=== PATIENT | female | born 1955 | race Caucasian/White ===

== ENCOUNTER 2016-07-04 07:49 | Outpatient (CLI) | payer OTHER | END 2016-07-04 07:50 | disposition home or self-care (01) | DX: Z79.899 Other long term (current) drug therapy (principal); E78.5 Hyperlipidemia, unspecified; E55.9 Vitamin D deficiency, unspecified; E11.9 Type 2 diabetes mellitus without complications ==

== ENCOUNTER 2016-08-28 06:13 | Day surgery (SDC) | payer OTHER ==
[2016-08-28] MEDS ORDERED: LACTATED RINGERS 1,000 ML IV ONE (06:42)
[2016-08-28] MEDS ORDERED: ONDANSETRON 4 MG/2 ML VIAL IVP ONE (07:32)
[2016-08-28] MEDS ORDERED: MIDAZOLAM 2 MG/2 ML VIAL IVP ONE (07:32)
[2016-08-28] MEDS ORDERED: fentaNYL 100 MCG/2 ML VIAL IVP ONE (07:32)
[2016-08-28] MEDS ORDERED: ONDANSETRON 4 MG/2 ML VIAL ONE (09:49)
[2016-08-28 10:26] VITALS: BP 102/56
== END 2016-08-28 06:14 | disposition home or self-care (01) ==
LOC: SDS 06:13
PROVIDERS: ATTEND Surgery
PROC: 0DJD8ZZ Inspection of Lower Intestinal Tract, Via Natural or Artificial Opening Endoscopic (ICD-10-PCS; principal; 2016-08-28 07:30)
DX: Z12.11 Encounter for screening for malignant neoplasm of colon (principal); K57.30 Diverticulosis of large intestine without perforation or abscess without bleeding; Z80.0 Family history of malignant neoplasm of digestive organs; E11.9 Type 2 diabetes mellitus without complications; I10 Essential (primary) hypertension; Z80.3 Family history of malignant neoplasm of breast
CPT/HCPCS: 45378; J7120

== ENCOUNTER 2017-01-01 07:55 | Outpatient (CLI) | payer OTHER ==
[2017-01-01 11:57] LABS: BASOPHILS # (AUTO) 0.1 10^3/uL (0.0-0.1); EOSINOPHILS # (AUTO) 0.3 10^3/uL (0.0-0.7); EOSINOPHILS % (AUTO) 3.7 %; HCT - HEMATOCRIT 35.1 % (37.0-47.0); HGB - HEMOGLOBIN 11.9 g/dL (12.0-16.0); LYMPHOCYTES # (AUTO) 1.7 10^3/uL (1.5-3.5); LYMPHOCYTES % (AUTO) 24.5 %; MEAN CORPUSCULAR HGB CONC 33.9 g/dL (32.0-36.0); MEAN CORPUSCULAR VOLUME 94.3 fL (81.0-99.0); MONOCYTES # (AUTO) 0.4 10^3/uL (0.0-1.0); NEUTROPHILS # (AUTO) 4.5 10^3/uL (1.5-6.6); NEUTROPHILS % (AUTO) 64.8 %; NUCLEATED RED BLOOD CELLS AUTO 0.1 /100WBC; RED BLOOD COUNT 3.72 10^6/uL (4.20-5.40); RED CELL DISTRIBUTION WIDTH 14.2 % (12.0-15.0); UNCORRECTED WHITE BLOOD COUNT 6.9 x10^3/uL; WHITE BLOOD COUNT 6.9 x10^3/uL (4.8-10.8)
[2017-01-01 12:31] LABS: HEMOGLOBIN A1C 0.72 g/dL
== END 2017-01-01 07:56 | disposition home or self-care (01) ==
LOC: LAB.F 07:55
PROVIDERS: ATTEND Physician Assistant Medical
DX: E55.9 Vitamin D deficiency, unspecified (principal); E11.9 Type 2 diabetes mellitus without complications; I10 Essential (primary) hypertension; D64.9 Anemia, unspecified
CPT/HCPCS: 36415; 82306; 83036; 84443; 85025

== ENCOUNTER 2017-03-04 10:30 | Outpatient (CLI) | payer OTHER | END 2017-03-04 10:31 | disposition home or self-care (01) | LOC: LAB.F 10:30 | PROVIDERS: ATTEND Physician Assistant Medical | DX: E03.9 Hypothyroidism, unspecified (principal) | CPT/HCPCS: 36415; 84443 ==

== ENCOUNTER 2017-07-08 09:27 | Outpatient (CLI) | payer OTHER ==
--- NOTE | 2017-07-09 11:09 | Mammography Report ---
DIGITAL SCREENING MAMMOGRAM: 07/08/2017 CLINICAL INDICATION: A 61-year-old with history of late childbearing, family history of breast cancer for screening. COMPARISON: 07/2014, 06/2014, 04/2013, 03/2012. TECHNIQUE: Routine CC and MLO projections were obtained of the breasts. FINDINGS: Scattered fibroglandular tissue is present within the breasts. There are no dominant masses, suspicious microcalcifications, or secondary signs of malignancy. In comparison to the previous studies, there are no significant changes. IMPRESSION: NO MAMMOGRAPHIC EVIDENCE OF MALIGNANCY. NO SIGNIFICANT INTERVAL CHANGES. RECOMMENDATION: Screening mammography is recommended annually. BIRADS CATEGORY 1 - NEGATIVE. STANDARD QUALIFYING STATEMENTS: 1. This examination was reviewed with the aid of Computed-Aided Detection (CAD). 2. A negative or benign imaging report should not delay biopsy if clinically suspicious findings are present. Consider surgical consultation if warranted. More than 5% of cancers are not identified by imaging. 3. Dense breasts may obscure an underlying neoplasm. TD: 07/09/2017 11:07
== END 2017-07-08 09:28 | disposition home or self-care (01) ==
LOC: DI 09:27
PROVIDERS: ATTEND Physician Assistant Medical
DX: Z12.31 Encounter for screening mammogram for malignant neoplasm of breast (principal); Z80.3 Family history of malignant neoplasm of breast
CPT/HCPCS: 77067

== ENCOUNTER 2017-09-24 07:24 | Outpatient (CLI) | payer OTHER ==
[2017-09-24 10:46] LABS: BASOPHILS # (AUTO) 0.1 10^3/uL (0.0-0.1); BASOPHILS % (AUTO) 0.9 %; EOSINOPHILS # (AUTO) 0.2 10^3/uL (0.0-0.7); EOSINOPHILS % (AUTO) 2.4 %; HGB - HEMOGLOBIN 12.2 g/dL (12.0-16.0); LYMPHOCYTES # (AUTO) 1.8 10^3/uL (1.5-3.5); LYMPHOCYTES % (AUTO) 23.9 %; MEAN CORPUSCULAR HEMOGLOBIN 31.7 pg (27.0-31.0); MEAN CORPUSCULAR HGB CONC 33.3 g/dL (32.0-36.0); MEAN CORPUSCULAR VOLUME 95.3 fL (81.0-99.0); MONOCYTES # (AUTO) 0.6 10^3/uL (0.0-1.0); MONOCYTES % (AUTO) 7.8 %; NEUTROPHILS # (AUTO) 4.9 10^3/uL (1.5-6.6); PLT - PLATELET COUNT 348 10^3/uL (130-450); RED BLOOD COUNT 3.86 10^6/uL (4.20-5.40); RED CELL DISTRIBUTION WIDTH 14.2 % (12.0-15.0); WHITE BLOOD COUNT 7.5 x10^3/uL (4.8-10.8)
[2017-09-24 11:04] LABS: HEMOGLOBIN A1C 0.67 g/dL; HEMOGLOBIN A1C % 6.9 % (4.6-6.2)
[2017-09-24 11:11] LABS: ALBUMIN 4.1 g/dL (3.2-5.5); ALBUMIN/GLOBULIN RATIO 1.2 (1.0-2.2); ALKALINE PHOSPHATASE 86 IU/L (42-121); ALT ALANINE AMINOTRANSFERASE 29 IU/L (10-60); AST ASPARTATE AMINOTRANSFERASE 24 IU/L (10-42); BILIRUBIN,TOTAL 0.5 mg/dL (0.2-1.0); BUN - BLOOD UREA NITROGEN 14 mg/dL (6-20); CALCIUM 9.3 mg/dL (8.5-10.3); CARBON DIOXIDE - CO2 29 mmol/L (21-32); CHLORIDE 101 mmol/L (101-111); CHOL/HDL RATIO 4.3 (<4.4); CHOLESTEROL 221 mg/dL; CREATININE 0.6 mg/dL (0.4-1.0); GFR - MDRD 102 (>89); GLUCOSE 134 mg/dL (70-100); HDL CHOLESTEROL 52 mg/dL; LDL CHOLESTEROL,CALCULATED 126 mg/dL; LDL/HDL RATIO 2.4 (<4.4); SODIUM 138 mmol/L (135-145); TOTAL PROTEIN 7.5 g/dL (6.7-8.2); VLDL CHOLESTEROL 43 mg/dL
== END 2017-09-24 07:25 | disposition home or self-care (01) ==
LOC: LAB.F 07:24
PROVIDERS: ATTEND Physician Assistant Medical
DX: Z00.00 Encounter for general adult medical examination without abnormal findings (principal); I10 Essential (primary) hypertension; E78.5 Hyperlipidemia, unspecified; E55.9 Vitamin D deficiency, unspecified; E11.9 Type 2 diabetes mellitus without complications; E03.9 Hypothyroidism, unspecified
CPT/HCPCS: 36415; 80053; 80061; 82306; 83036; 83721; 84443; 85025

== ENCOUNTER 2017-09-30 09:28 | Outpatient (CLI) | payer OTHER | END 2017-09-30 09:29 | disposition home or self-care (01) | LOC: LAB.F 09:28 | PROVIDERS: ATTEND Physician Assistant Medical | DX: E11.9 Type 2 diabetes mellitus without complications (principal) | CPT/HCPCS: 82043 ==

== ENCOUNTER 2018-04-07 13:45 | Outpatient (CLI) | payer OTHER ==
[2018-04-07 18:58] LABS: CALCIUM 9.4 mg/dL (8.5-10.3); CREATININE 0.5 mg/dL (0.4-1.0)
[2018-04-07 20:03] LABS: HB2 TOTAL 12.2 g/dL; HEMOGLOBIN A1C 0.66 g/dL; HEMOGLOBIN A1C % 7.1 % (4.6-6.2)
== END 2018-04-07 13:46 | disposition home or self-care (01) ==
LOC: LAB.F 13:45
PROVIDERS: ATTEND Physician Assistant Medical
DX: E11.9 Type 2 diabetes mellitus without complications (principal)
CPT/HCPCS: 36415; 80048; 82043; 83036

== ENCOUNTER 2018-10-14 07:02 | Outpatient (CLI) | payer OTHER ==
[2018-10-14 10:15] LABS: CHOLESTEROL 223 mg/dL; HDL CHOLESTEROL 45 mg/dL; LDL CHOLESTEROL,CALCULATED 133 mg/dL; VLDL CHOLESTEROL 45 mg/dL
[2018-10-14 10:28] LABS: HB2 TOTAL 12.4 g/dL; HEMOGLOBIN A1C 0.69 g/dL; HEMOGLOBIN A1C % 7.2 % (4.6-6.2)
== END 2018-10-14 07:03 | disposition home or self-care (01) ==
LOC: LAB.S 07:02
PROVIDERS: ATTEND Physician Assistant Medical
DX: E78.5 Hyperlipidemia, unspecified (principal)
CPT/HCPCS: 36415; 80061; 83036; 83721

== ENCOUNTER 2018-11-04 13:35 | Outpatient (CLI) | payer OTHER | END 2018-11-04 13:36 | disposition home or self-care (01) | LOC: LAB.S 13:35 | PROVIDERS: ATTEND Physician Assistant Medical | DX: E78.5 Hyperlipidemia, unspecified (principal); E03.9 Hypothyroidism, unspecified | CPT/HCPCS: 36415; 84443 ==

== ENCOUNTER 2018-11-05 10:06 | Outpatient (CLI) | payer OTHER | END 2018-11-05 10:07 | disposition home or self-care (01) | LOC: LAB.S 10:06 | PROVIDERS: ATTEND Physician Assistant Medical | DX: E03.9 Hypothyroidism, unspecified (principal); E78.5 Hyperlipidemia, unspecified | CPT/HCPCS: 36415; 84443 ==

== ENCOUNTER 2019-03-16 07:02 | Outpatient (CLI) | payer OTHER ==
[2019-03-16 11:29] LABS: CHOL/HDL RATIO 4.4 (<4.4); CHOLESTEROL 266 mg/dL; HDL CHOLESTEROL 61 mg/dL; LDL CHOLESTEROL,CALCULATED 165 mg/dL; LDL/HDL RATIO 2.7 (<4.4); VLDL CHOLESTEROL 40 mg/dL
[2019-03-16 11:40] LABS: THYROID STIMULATING HORMONE 5.09 uIU/mL (0.34-5.60)
[2019-03-16 11:42] LABS: FREE T4 (FREE THYROXINE) 0.83 ng/dL (0.58-1.64)
[2019-03-16 13:49] LABS: HB2 TOTAL 12.8 g/dL; HEMOGLOBIN A1C 0.8 g/dL; HEMOGLOBIN A1C % 7.9 % (4.6-6.2)
== END 2019-03-16 07:03 | disposition home or self-care (01) ==
LOC: LAB.S 07:02
PROVIDERS: ATTEND Physician Assistant Medical
DX: E78.5 Hyperlipidemia, unspecified (principal); E11.9 Type 2 diabetes mellitus without complications; E03.9 Hypothyroidism, unspecified
CPT/HCPCS: 36415; 80061; 83036; 83721; 84439; 84443; 84481

== ENCOUNTER 2019-09-01 07:02 | Outpatient (CLI) | payer OTHER ==
[2019-09-01 15:55] LABS: HB2 TOTAL 13.1 g/dL; HEMOGLOBIN A1C 0.71 g/dL; HEMOGLOBIN A1C % 7.1 % (4.6-6.2)
[2019-09-01 16:02] LABS: CREATININE,URINE 105.5 mg/dL; MICROALBUM/CREATININE RATIO,UR 7.6 ug/mg (<30.0); MICROALBUMIN,URINE 0.8 mg/dL (0-300.0)
[2019-09-01 16:05] LABS: CHOL/HDL RATIO 3.8 (<4.4); CHOLESTEROL 240 mg/dL; HDL CHOLESTEROL 63 mg/dL; LDL CHOLESTEROL,CALCULATED 142 mg/dL; LDL/HDL RATIO 2.3 (<4.4); VLDL CHOLESTEROL 35 mg/dL
== END 2019-09-01 07:03 | disposition home or self-care (01) ==
LOC: LAB.S 07:02
PROVIDERS: ATTEND Physician Assistant Medical
DX: E78.5 Hyperlipidemia, unspecified (principal); E11.9 Type 2 diabetes mellitus without complications; E03.9 Hypothyroidism, unspecified
CPT/HCPCS: 36415; 80061; 82043; 82570; 83036; 83721; 84443

== ENCOUNTER 2019-10-05 15:07 | Outpatient (CLI) | payer OTHER ==
--- NOTE | 2019-10-05 16:38 | DEXA Report ---
Reason: POST MENOPAUSAL Procedure Date: 10/05/2019 Accession Number: [id number] / [id number] Procedure: DEX - Dexa Spine and/or Hip CPT Code: Final Report FULL RESULT: PROCEDURE: Dexa Spine and/or Hip INDICATIONS: POST MENOPAUSAL TECHNIQUE: Dual energy x-ray absorptiometry (DXA) was performed on a [employer] System. Regions measured are the AP Spine, femoral neck, and if needed forearm. COMPARISON: None. FINDINGS: Lumbar Spine: Bone Mineral Density 1.283 g/cm/cm,T score 0.9, Left Hip: Bone Mineral Density 1.9 g/cm/cm,T score 1.4, (T score greater or equal to -1.0: NORMAL) (T score from -1.1 to -2.4: OSTEOPENIA) (T score less than or equal to -2.5 to: OSTEOPOROSIS) Impression: Normal bone density. Patients with diagnosis of osteoporosis or osteopenia should have regular bone mineral density assessment. For those eligible for Medicare, routine testing is allowed once every 2 years. Testing frequency can be increased for patients who have rapidly progressing disease or for those who are receiving medical therapy to restore bone mass. Reviewed by: Cristofer Solorzano MD on 10/05/2019 4:37 PM PDT Approved by: Cristofer Solorzano MD on 10/05/2019 4:37 PM PDT Station ID: [id number]
== END 2019-10-05 15:08 | disposition home or self-care (01) ==
LOC: DI 15:07
PROVIDERS: ATTEND Physician Assistant
DX: Z78.0 Asymptomatic menopausal state (principal)
CPT/HCPCS: 77080

== ENCOUNTER 2020-01-14 12:59 | Outpatient (CLI) | payer OTHER ==
--- NOTE | 2020-01-15 16:00 | Mammography Report ---
BILATERAL DIGITAL SCREENING MAMMOGRAM 3D/2D: 01/14/2020 CLINICAL: Routine screening. Mother with postmenopausal breast cancer. Comparison is made to exams dated: 07/08/2017 mammogram, 08/11/2014 mammogram, 07/20/2014 mammogram, 04/02 mammogram, and 03/18/2012 mammogram - [facility]. There are scattered fibro glandular elements in both breasts. No significant masses, calcifications, or other findings are seen in either breast. There has been no significant interval change. IMPRESSION: NEGATIVE There is no mammographic evidence of malignancy. A 1 year screening mammogram is recommended. This exam was interpreted at Station ID: [id number]. NOTE: For mammograms, a report in lay terms will be sent to the patient. Approximately 15% of breast malignancies will not be visualized mammographically. In the management of a palpable breast mass, a negative mammogram must not discourage biopsy of a clinically suspicious lesion. Electronically Signed By: Izzy carballo/himanshu:01/14/2020 14:46:49 ACR BI-RADS Category 1: Negative 3341F PARENCHYMAL PATTERN: (A) - The breast(s) demonstrate(s) scattered fibroglandular densities. BI-RADS CATEGORY: (1) - 1 RECOMMENDATION: (ANNUAL) - Recommend routine annual screening mammography. [id number] 1 year screening LATERALITY: (B)
== END 2020-01-14 13:00 | disposition home or self-care (01) ==
LOC: DI 12:59
DX: Z12.31 Encounter for screening mammogram for malignant neoplasm of breast (principal); Z80.3 Family history of malignant neoplasm of breast
CPT/HCPCS: 77063; 77067

== ENCOUNTER 2020-05-03 07:06 | Outpatient (CLI) | payer OTHER ==
[2020-05-03 14:37] LABS: BASOPHILS # (AUTO) 0.1 10^3/uL (0.0-0.1); BASOPHILS % (AUTO) 1.1 %; EOSINOPHILS # (AUTO) 0.2 10^3/uL (0.0-0.7); EOSINOPHILS % (AUTO) 3.3 %; HGB - HEMOGLOBIN 12.3 g/dL (12.0-16.0); LYMPHOCYTES # (AUTO) 1.6 10^3/uL (1.5-3.5); LYMPHOCYTES % (AUTO) 24.7 %; MEAN CORPUSCULAR HEMOGLOBIN 31.5 pg (27.0-31.0); MEAN CORPUSCULAR HGB CONC 31.8 g/dL (32.0-36.0); MEAN CORPUSCULAR VOLUME 99.2 fL (81.0-99.0); MEAN PLATELET VOLUME 9.8 fL (7.9-10.8); MONOCYTES # (AUTO) 0.6 10^3/uL (0.0-1.0); MONOCYTES % (AUTO) 9.4 %; NEUTROPHILS % (AUTO) 60.9 %; PLT - PLATELET COUNT 338 10^3/uL (130-450); RED CELL DISTRIBUTION WIDTH 14.3 % (12.0-15.0); WHITE BLOOD COUNT 6.6 x10^3/uL (4.8-10.8)
[2020-05-03 14:54] LABS: BUN - BLOOD UREA NITROGEN 15 mg/dL (6-20); CALCIUM 10.2 mg/dL (8.5-10.3); CARBON DIOXIDE - CO2 27 mmol/L (21-32); CHLORIDE 99 mmol/L (101-111); CHOLESTEROL 267 mg/dL; CREATININE 0.7 mg/dL (0.4-1.0); GLUCOSE 166 mg/dL (70-100); HDL CHOLESTEROL 53 mg/dL; LDL CHOLESTEROL,CALCULATED 163 mg/dL; LDL/HDL RATIO 3.1 (<4.4); VLDL CHOLESTEROL 51 mg/dL
[2020-05-03 15:13] LABS: HEMOGLOBIN A1c% 7.5 % (4.27-6.07)
[2020-05-03 16:22] LABS: MICROALBUMIN,URINE 2.4 mg/dL (0-300.0)
== END 2020-05-03 07:07 | disposition home or self-care (01) ==
LOC: LAB.S 07:06
PROVIDERS: ATTEND Physician Assistant
DX: E78.5 Hyperlipidemia, unspecified (principal); I10 Essential (primary) hypertension; E11.9 Type 2 diabetes mellitus without complications; E03.9 Hypothyroidism, unspecified; Z79.899 Other long term (current) drug therapy
CPT/HCPCS: 36415; 80048; 80061; 82043; 82570; 83036; 83721; 85025

== ENCOUNTER 2020-08-06 09:07 | Outpatient (CLI) | payer OTHER ==
[2020-08-06 12:22] LABS: ESTIMATED AVERAGE GLUCOSE 148 mg/dL (70-100); HEMOGLOBIN A1c% 6.8 % (4.27-6.07)
== END 2020-08-06 09:08 | disposition home or self-care (01) ==
LOC: LAB 09:07
PROVIDERS: ATTEND Physician Assistant
DX: E11.9 Type 2 diabetes mellitus without complications (principal)
CPT/HCPCS: 36415; 83036

== ENCOUNTER 2020-12-06 11:17 | Outpatient (CLI) | payer MEDICARE, OTHER ==
[2020-12-06 20:11] LABS: ESTIMATED AVERAGE GLUCOSE 140 mg/dL (70-100); HEMOGLOBIN A1c% 6.5 % (4.27-6.07)
== END 2020-12-06 11:18 | disposition home or self-care (01) ==
LOC: LAB.S 11:17
PROVIDERS: ATTEND Physician Assistant
DX: E11.9 Type 2 diabetes mellitus without complications (principal)
CPT/HCPCS: 36415; 83036

== ENCOUNTER 2021-10-09 07:58 | Outpatient (CLI) | payer MEDICARE, OTHER ==
[2021-10-09 15:02] LABS: BASOPHILS # (AUTO) 0.1 10^3/uL (0.0-0.1); EOSINOPHILS # (AUTO) 0.3 10^3/uL (0.0-0.7); EOSINOPHILS % (AUTO) 3.4 %; HCT - HEMATOCRIT 38.1 % (37.0-47.0); HGB - HEMOGLOBIN 12.4 g/dL (12.0-16.0); LYMPHOCYTES # (AUTO) 2.3 10^3/uL (1.5-3.5); LYMPHOCYTES % (AUTO) 27.4 %; MEAN CORPUSCULAR HEMOGLOBIN 32.3 pg (27.0-31.0); MEAN CORPUSCULAR HGB CONC 32.5 g/dL (32.0-36.0); MEAN CORPUSCULAR VOLUME 99.2 fL (81.0-99.0); MEAN PLATELET VOLUME 9.6 fL (7.9-10.8); MONOCYTES # (AUTO) 0.5 10^3/uL (0.0-1.0); MONOCYTES % (AUTO) 6.4 %; NEUTROPHILS # (AUTO) 5.1 10^3/uL (1.5-6.6); NEUTROPHILS % (AUTO) 61.3 %; PLT - PLATELET COUNT 348 10^3/uL (130-450); RED BLOOD COUNT 3.84 10^6/uL (4.20-5.40); RED CELL DISTRIBUTION WIDTH 14.2 % (12.0-15.0); WHITE BLOOD COUNT 8.3 x10^3/uL (4.8-10.8)
[2021-10-09 15:37] LABS: ALBUMIN 4.2 g/dL (3.2-5.5); ALBUMIN/GLOBULIN RATIO 1.4 (1.0-2.2); ALKALINE PHOSPHATASE 78 IU/L (42-121); ALT ALANINE AMINOTRANSFERASE 22 IU/L (10-60); AST ASPARTATE AMINOTRANSFERASE 18 IU/L (10-42); BILIRUBIN,TOTAL 0.5 mg/dL (0.2-1.0); BUN - BLOOD UREA NITROGEN 17 mg/dL (6-20); CALCIUM 9.7 mg/dL (8.5-10.3); CARBON DIOXIDE - CO2 30 mmol/L (21-32); CHLORIDE 102 mmol/L (101-111); CHOL/HDL RATIO 4.9 (<4.4); CHOLESTEROL 267 mg/dL; CREATININE 0.7 mg/dL (0.4-1.0); GFR - MDRD 84 (>89); GLUCOSE 119 mg/dL (70-100); HDL CHOLESTEROL 54 mg/dL; LDL CHOLESTEROL,CALCULATED 158 mg/dL; LDL/HDL RATIO 2.9 (<4.4); POTASSIUM 4.4 mmol/L (3.5-5.0); SODIUM 138 mmol/L (135-145); TOTAL PROTEIN 7.1 g/dL (6.7-8.2); TRIGLYCERIDES 273 mg/dL; VLDL CHOLESTEROL 55 mg/dL
[2021-10-09 15:44] LABS: THYROID STIMULATING HORMONE 4.63 uIU/mL (0.34-5.60)
== END 2021-10-09 07:59 | disposition home or self-care (01) ==
LOC: LAB.S 07:58
PROVIDERS: ATTEND Registered Nurse
DX: E11.9 Type 2 diabetes mellitus without complications (principal); Z79.899 Other long term (current) drug therapy; E78.5 Hyperlipidemia, unspecified; E03.9 Hypothyroidism, unspecified
CPT/HCPCS: 36415; 80053; 80061; 83721; 84443; 85025

== ENCOUNTER 2021-12-12 14:22 | Outpatient (CLI) | payer MEDICARE, OTHER ==
[2021-12-12 21:00] LABS: CREATININE,URINE 181.7 mg/dL; MICROALBUM/CREATININE RATIO,UR 6.1 ug/mg (<30.0); MICROALBUMIN,URINE 1.1 mg/dL (0-300.0)
[2021-12-12 22:45] LABS: ESTIMATED AVERAGE GLUCOSE 143 mg/dL (70-100); HEMOGLOBIN A1c% 6.6 % (4.27-6.07)
== END 2021-12-12 14:23 | disposition home or self-care (01) ==
LOC: LAB.S 14:22
PROVIDERS: ATTEND Registered Nurse
DX: E11.9 Type 2 diabetes mellitus without complications (principal)
CPT/HCPCS: 36415; 82043; 82570; 83036

== ENCOUNTER 2022-06-28 09:05 | Outpatient (CLI) | payer MEDICARE, OTHER | END 2022-06-28 09:06 | disposition home or self-care (01) | LOC: LAB.S 09:05 | PROVIDERS: ATTEND Registered Nurse | DX: E11.9 Type 2 diabetes mellitus without complications (principal) ==

== ENCOUNTER 2022-06-28 09:57 | Outpatient (CLI) | payer MEDICARE, OTHER | END 2022-06-28 09:58 | disposition short-term general hospital (02) | LOC: EMS 09:57 | DX: I47.1 Supraventricular tachycardia (principal) | CPT/HCPCS: A0425; A0429 ==

== ENCOUNTER 2022-07-01 02:03 | Outpatient (CLI) | payer MEDICARE, OTHER | END 2022-07-01 02:04 | disposition critical access hospital (66) | LOC: EMS 02:03 | DX: I48.92 Unspecified atrial flutter (principal) | CPT/HCPCS: A0425; A0427 ==

== ENCOUNTER 2022-07-01 02:24 | Emergency (ER) | payer MEDICARE, OTHER ==
[2022-07-01 04:13] LABS: BASOPHILS # (AUTO) 0.1 10^3/uL (0.0-0.1); BASOPHILS % (AUTO) 0.7 %; EOSINOPHILS # (AUTO) 0.1 10^3/uL (0.0-0.7); HCT - HEMATOCRIT 34.7 % (37.0-47.0); HGB - HEMOGLOBIN 11.5 g/dL (12.0-16.0); LYMPHOCYTES # (AUTO) 1.2 10^3/uL (1.5-3.5); LYMPHOCYTES % (AUTO) 12.4 %; MEAN CORPUSCULAR HEMOGLOBIN 31.8 pg (27.0-31.0); MEAN CORPUSCULAR HGB CONC 33.1 g/dL (32.0-36.0); MEAN CORPUSCULAR VOLUME 95.9 fL (81.0-99.0); MONOCYTES # (AUTO) 0.6 10^3/uL (0.0-1.0); MONOCYTES % (AUTO) 5.6 %; NEUTROPHILS # (AUTO) 7.9 10^3/uL (1.5-6.6); PLT - PLATELET COUNT 286 10^3/uL (130-450); RED BLOOD COUNT 3.62 10^6/uL (4.20-5.40); RED CELL DISTRIBUTION WIDTH 14.2 % (12.0-15.0); WHITE BLOOD COUNT 9.9 x10^3/uL (4.8-10.8)
[2022-07-01 04:27] LABS: ALBUMIN/GLOBULIN RATIO 1.3 (1.0-2.2); BILIRUBIN,TOTAL 0.5 mg/dL (0.2-1.0); CALCIUM 8.9 mg/dL (8.5-10.3); CREATININE 0.7 mg/dL (0.4-1.0); POTASSIUM 4.3 mmol/L (3.5-5.0); TOTAL PROTEIN 7.2 g/dL (6.7-8.2)
--- NOTE | 2022-07-01 05:59 | ED Physician Documentation ---
History of Present Illness - Stated complaint Stated Complaint: RAPID HR, SVT A-FLUTTER - Chief complaint Chief Complaint: Cardiac - History obtained from History obtained from: Patient - Additonal information Additional information: HPI from patient. GABRIEL. Patient woke at approximately 1 AM today with rapid palpitations. She noted her pulse rate to be 167. She had similar symptoms 3 days ago and was T+R from [facility] for SVT which then converted to atrial flutter. She was discharged with two new prescriptions, metoprolol XL and xarelto, and she has been taking both of these medications. She has follow up arranged with cardiology. Patient denies dyspnea, chest pain. She was given 6mg IV adenosine by EMS followed by 12mg IV adenosine which then resulted in conversion to rapid atrial flutter and thus given 20 mg IV cardizem with good response. Patient arrives asymptomatic and with normal vital signs including heart rate and blood pressure. Review of Systems Cardiac: reports: Palpitations. denies: Chest pain / pressure Respiratory: reports: Reviewed and negative GI: reports: Reviewed and negative PD PAST MEDICAL HISTORY - Past Medical History Past Medical History: Yes Cardiovascular: Hypertension, Other Respiratory: Asthma Endocrine/Autoimmune: Type 2 diabetes, HyPOthyroidism GI: None OTOLOGIST: Ovarian cysts : None Psych: None Musculoskeletal: None Derm: None Other Past Medical History: Recently DX w/ SVT - Past Surgical History Past Surgical History: Yes General: Colonoscopy /OTOLOGIST: Other Cardiovascular: Other - Present Medications Home Medications: Ambulatory Orders Medication Instructions Recorded Confirmed metFORMIN [Glucophage] 500 mg PO BIDWM 08/24/16 07/01/22 Levothyroxine Sodium [Synthroid] 175 mcg PO DAILY 07/01/22 07/01/22 Metoprolol Tartrate [Lopressor] 50 mg PO DAILY 07/01/22 07/01/22 - Allergies Allergies/Adverse Reactions: Allergies Allergy/AdvReac Type Severity Reaction Status Date / Time levothyroxine sodium Allergy Rash Verified 07/01/22 05:43 [From Levoxyl] Sulfa (Sulfonamide Allergy Rash Verified 07/01/22 05:43 Antibiotics) - Social History Does the pt smoke?: No Smoking Status: Never smoker Does the pt drink ETOH?: No Does the pt have substance abuse?: No - Immunizations Immunizations are current?: Yes - POLST Patient has POLST: No PD ED PE NORMAL - Vitals Vital signs reviewed: Yes - General General: Alert and oriented X 3, No acute distress, Well developed/nourished - Cardiac Cardiac: RRR, No murmur, No gallop, No rub - Respiratory Respiratory: No respiratory distress, Clear bilaterally - Abdomen Abdomen: Soft, Non tender - Extremities Extremities: No edema Results - Vitals Vitals: Oxygen O2 Source Room air - EKG (time done) No standard instances EKG releavant findings:: EKG personally interpreted by author of this note. Relevant findings are: Rate: Rate (enter#) (82) Rhythm: Abnormal P waves (diffuse p wave inversion (inferior leads, V3-V6)), Other (suspect ectopic rhythm due to p wave abnormality) [place]: LAD, Anterior hemiblock Intervals: Prolonged TX QRS: Normal Ischemia: Normal ST segments - Labs Labs: Laboratory Tests 07/01/22 07/01/22 07/01/22 04:09 04:09 04:09 WBC 9.9 RBC 3.62 L Hgb 11.5 L Hct 34.7 L MCV 95.9 MCH 31.8 H MCHC 33.1 RDW 14.2 Plt Count 286 MPV 9.0 Neut # (Auto) 7.9 H Lymph # (Auto) 1.2 L [place] # (Auto) 0.6 Eos # (Auto) 0.1 Baso # (Auto) 0.1 Absolute Nucleated RBC 0.00 Nucleated RBC % 0.0 Sodium 143 Potassium 4.3 Chloride 110 Carbon Dioxide 24 Anion Gap 9.0 BUN 15 Creatinine 0.7 Estimated GFR (MDRD) 84 L Glucose 152 H Calcium 8.9 Total Bilirubin 0.5 AST 21 ALT 22 Alkaline Phosphatase 65 Troponin I High Sens 10.6 Total Protein 7.2 Albumin 4.0 Globulin 3.2 Albumin/Globulin Ratio 1.3 Lipase 31 PD Medical Decision Making - ED course Complexity details: reviewed old records (records from [facility] ED visit requested, faxed to [facility] ED and reviewed by me), reviewed results, re-evaluated patient, considered differential, d/w patient ED course: tests ordered and results reviewed by me: CBC, ER abdominal panel, hs-cTn, EKG. There are no concerning findings on the blood tests and hs-cTn is normal. She remained asymptomatic during ED stay and rhythm did not vary on monitor from arrival; the rhythm is regular and narrow-complex but diffuse p wave inversion suggests ectopic atrial rhythm . Results reviewed with patient, return precautions discussed. Departure - Departure Disposition: 01 Home, Self Care Clinical Impression: SVT (supraventricular tachycardia), Atrial flutter Condition: Good Instructions: Understanding Supraventricular Tachycardia SVT, Treatment for Supraventricular Tachycardia SVT, Atrial Flutter, ED Tachycardia Pat PSVT Comments: You are given medication by the medics for SVT which successfully resolved the SVT after a second dose. Given a different medication (diltiazem) to lower your heart rate further, as you appear to be in a rapid atrial flutter once the SVT have resolved. By the time you arrived in the emergency department, and throughout your emergency department stay, your vital signs have been normal including a normal heart rate. On the monitor and EKG, it appears that you are still in atrial flutter, but the rate is well controlled; this is likely due to the metoprolol that you have been taking since being discharged from [facility]. There were no concerning findings on tonight's blood tests, which included a cardiac enzyme blood test. Follow-up with cardiology as scheduled. Discharge Date/Time: 07/01/22 06:12
[2022-07-01 06:12] VITALS: BP 124/76
== END 2022-07-01 06:12 | disposition home or self-care (01) ==
LOC: ED 02:24
DX: I47.1 Supraventricular tachycardia (principal); I48.92 Unspecified atrial flutter; I10 Essential (primary) hypertension; E11.9 Type 2 diabetes mellitus without complications; E03.9 Hypothyroidism, unspecified; Z79.84 Long term (current) use of oral hypoglycemic drugs; Z79.899 Other long term (current) drug therapy
CPT/HCPCS: 36415; 80053; 83690; 84484; 85025; 93005; 99284

== ENCOUNTER 2022-07-02 06:46 | Outpatient (CLI) | payer MEDICARE, OTHER | END 2022-07-02 09:22 | disposition short-term general hospital (02) | LOC: EMS 06:46 | DX: R00.2 Palpitations (principal); R00.0 Tachycardia, unspecified | CPT/HCPCS: A0425; A0427 ==

== ENCOUNTER 2022-07-03 07:11 | Outpatient (CLI) | payer MEDICARE, OTHER ==
[2022-07-03 15:13] LABS: ALBUMIN 4.3 g/dL (3.2-5.5); ALBUMIN/GLOBULIN RATIO 1.3 (1.0-2.2); BILIRUBIN,TOTAL 0.7 mg/dL (0.2-1.0); CALCIUM 9.4 mg/dL (8.5-10.3); CREATININE 0.7 mg/dL (0.4-1.0); POTASSIUM 4.1 mmol/L (3.5-5.0); TOTAL PROTEIN 7.5 g/dL (6.7-8.2)
[2022-07-03 21:07] LABS: ESTIMATED AVERAGE GLUCOSE 140 mg/dL (70-100); HEMOGLOBIN A1c% 6.5 % (4.27-6.07)
== END 2022-07-03 07:12 | disposition home or self-care (01) ==
LOC: LAB.S 07:11
PROVIDERS: ATTEND Registered Nurse
DX: E11.9 Type 2 diabetes mellitus without complications (principal)
CPT/HCPCS: 36415; 80053; 83036

== ENCOUNTER 2022-09-07 08:17 | Outpatient (CLI) | payer MEDICARE, OTHER ==
[2022-09-07 15:34] LABS: ALBUMIN 4.3 g/dL (3.2-5.5); ALBUMIN/GLOBULIN RATIO 1.3 (1.0-2.2); BILIRUBIN,TOTAL 0.5 mg/dL (0.2-1.0); CALCIUM 9.4 mg/dL (8.5-10.3); CREATININE 0.6 mg/dL (0.4-1.0); POTASSIUM 4.6 mmol/L (3.5-5.0); TOTAL PROTEIN 7.5 g/dL (6.7-8.2)
[2022-09-07 15:35] LABS: ESTIMATED AVERAGE GLUCOSE 137 mg/dL (70-100); HEMOGLOBIN A1c% 6.4 % (4.27-6.07)
== END 2022-09-07 08:18 | disposition home or self-care (01) ==
LOC: LAB.S 08:17
PROVIDERS: ATTEND Registered Nurse
DX: E11.9 Type 2 diabetes mellitus without complications (principal)
CPT/HCPCS: 36415; 80053; 83036

== ENCOUNTER 2022-09-12 10:46 | Outpatient (CLI) | payer MEDICARE, OTHER ==
--- NOTE | 2022-09-12 11:51 | SLEEP CARE CONSULTATION ---
Information from patient questionnaire entered by Evy Houston. I have reviewed and concur with the information entered by Evy Houston. This document represents the service I personally performed and the decisions made by me, Codie Rodriguez ARNP. History of Present Illness Service Date and Time: 09/12/2022 1046 Reason for Visit: New patient Chief Complaint: reports: Other (FALL ASLEEP QUICKLY BUT THEN WAKE 4-5HRS LATER AND AM WIDE AWAKE) Usual bedtime: 10PM Time it takes to fall asleep: 5-15MINS Snores at night: No Observed to quit breathing while asleep: No Sleeps alone due to snoring: No Number of times waking at night: 1-3 Reasons for waking at night: reports: Bathroom. denies: Choking, Gasping for air Toss, Turn, or Twitch while sleeping: No Recalls having dreams: Yes Usually gets out of bed at: 7AM Feels refreshed in the morning: Yes Morning headache: No Sleepy or fatigued during the day: No Ever fallen asleep while driving: No Takes day naps: Yes (rare, 2 times month) Dreams during day naps: No Prior sleep studies: No Additional HPI information: I had the pleasure of seeing GARRISON JOHNSON today regarding the possibility of her having a sleep disorder. Her current complaint is that she falls asleep quickly but then wakes up 4 hours later and is wide awake. She states she went into SVT on June 28. She had an ablation done on July 17 and has not had problems with the heart rate since the ablation. She had made her appointment here before the ablation. She states she only sleeps about 4-5 hours and is wide awake and will fall back to sleep for a few more hours. Other nights she can sleep up to 8 hours. She sleeps in a recliner due to history of frozen shoulders. She sleeps well in the recliner. - Parasomnia Symptoms Ever been unable to move upon waking from sleep: No Walks in sleep: No Talks in sleep: No Ever acted out dreams in sleep: No Ever felt weak in the knees when startled or emotional: Yes (rare, has not fallen to ground) Bothered by creepy, crawly, restless sensations in legs: No Problems with memory or concentration: No Subjective Initial [place] Sleepiness Scale score: 6 (09/02/22) Past Medical History Past Medical History: reports: Diabetes, Arrythmia (SVT in May 2022, Ablation in June), Hypothyroidism Social History The patient's occupation is a [employer]. Patient is and lives in [place]. Have you smoked in the past 12 months: No Alcohol use: No Caffeine use: Yes Caffeine amount and frequency: 2 CUPS BLACK TEA EVERY MORNING Family History Family history of sleep disordered breathing: Yes Family Hx Sleep Apnea: Father: Snoring, Sibling: Snoring, Sleep apnea - Treated Allergies and Home Medications Known drug allergies: Yes (GENERIC LEVOTHYROXINE, NAPROXEN, LOVASTATIN, STATINS) Drug allergies reviewed: Yes Home medication list reviewed: Yes Allergy and home medication list: Allergies levothyroxine sodium [From Levoxyl] Allergy (Verified 09/11/22 21:49) Rash Sulfa (Sulfonamide Antibiotics) Allergy (Verified 09/11/22 21:49) Rash Medications: Synthroid 175 mcg daily Lisinopril 2.5 mg daily Metformin 500 mg twice a day Gabapentin 100 mg, as needed Loratadine 10 mg daily ProAir HFA, as needed Nasocort Allergy 24 hr spray, prn Metronidazole Topical Cream 0.75% daily or less, prn Proctozone-HC 2.5%, prn Aspirin 81 mg daily EPA and DHA fish oil 1000 mg daily Multivitamin daily Ubiquinol QH-Absorb 100 mg, per day Liver Detoxifier and Regenerator daily Curcumin 95 daily Zyflamend 2 ounce per day Cinnamon 1500 mg daily 5-HTP 50 mg daily Chromium 200 mcg daily Ashwagandha 450 mg daily Spirulina 2000 mg twice daily MegaFood daily Ocuvite Eye Vitamin and Mineral Supplement daily WICHO 500 mg daily Collagen Complex daily Probiotic daily Review of Systems Weight loss over past 5 years: 24 Cardiovascular: denies: high blood pressure Respiratory: reports: sputum production Gastrointestinal: reports: diarrhea. denies: heartburn Neurological: denies: headaches Psychiatric: reports: anxiety Ear/Nose/Throat: reports: nasal congestion, wisdom teeth removed. denies: tonsillectomy Endocrine: reports: thyroid disease Immunologic: reports: sneezing, allergies to food or environment Physical Exam Vital signs obtained and entered by: Codie Garcia NP Blood Pressure: 118/78 Cuff size: wrist (right) Heart Rate: 71 O2 Saturation: 95 Height: 5 ft 8 in Weight: 201 lb 12.8 oz Body Mass Index: 30.7 BMI Classification: Obese Neck circumference: 14 (inches) Mouth and throat: narrow oropharynx Soft palate: long Hard palate: normal Uvula: normal Uvula visualization: 25% Mallampati Class III Tongue: enlarged in size with teeth maritnez on lateral edges Tonsils: small Neck: normal w/o lymphadenopathy or thyromegaly Heart: regular rate and rhythm Lungs: clear bilaterally Impression and Plan 1. Suspected Obstructive Sleep Apnea-Hypopnea Syndrome, as suggested by a history of recent SVT and diabetes. Narrow oropharynx and obesity are common predisposing factors for obstructive sleep apnea-hypopnea syndrome. I recommend proceeding to polysomnography to confirm the diagnosis and to assess severity. If the patient has significant sleep disordered breathing, a manual CPAP titration study will also be performed to find the optimal treatment pressure. I informed the patient of what the sleep studies involve and after some discussion, obtained agreement to proceed. The pathophysiology of obstructive sleep apnea-hypopnea syndrome was discussed with the patient and health risks of cardiovascular and cerebrovascular disease if not treated. Risks of drowsy driving discussed in detail and patient advised to avoid long distance driving and to tie puller at the first sign of drowsiness. Patient agreed to plan. * Schedule polysomnography +- manual CPAP titration study and return in 1-2 weeks after the study to discuss result and initiate therapy. * Avoid long distance driving or driving when feeling sleepy. * Avoid alcohol, sedative and muscle relaxant around bedtime. * Attempt to lose weight. * Review instructions provided by trained office staff on how to prepare for the sleep study. * Return for follow-up after sleep study completed. Counseling Topics: Weight loss health impact Visit Type: In Office Time Spent with Patient (minutes): 44 Provider Statement: I spent 100% of the Face to Face Visit with the patient with greater than 50% spent counseling the patient and coordination of care.
[2022-09-12 11:56] VITALS: BP 118/78
== END 2022-09-12 10:47 | disposition home or self-care (01) ==
LOC: SC 10:46
PROVIDERS: ATTEND Nurse Practitioner Family
DX: G47.9 Sleep disorder, unspecified (principal); E11.9 Type 2 diabetes mellitus without complications; Z79.84 Long term (current) use of oral hypoglycemic drugs; Z86.79 Personal history of other diseases of the circulatory system; Z79.899 Other long term (current) drug therapy; E66.9 Obesity, unspecified; Z68.30 Body mass index [BMI] 30.0-30.9, adult
CPT/HCPCS: 99203; G0463; 99212

== ENCOUNTER 2022-10-05 21:05 | Outpatient (CLI) | payer MEDICARE, OTHER | END 2022-10-05 21:06 | disposition home or self-care (01) | LOC: SC 21:05 | PROVIDERS: ATTEND Nurse Practitioner Family | DX: G47.33 Obstructive sleep apnea (adult) (pediatric) (principal); E66.9 Obesity, unspecified; Z68.30 Body mass index [BMI] 30.0-30.9, adult | CPT/HCPCS: 95810 ==

== ENCOUNTER 2022-10-12 16:06 | Outpatient (CLI) | payer MEDICARE, OTHER ==
--- NOTE | 2022-10-12 10:51 | SLEEP CARE CONSULTATION ---
Information from patient questionnaire entered by Evy Houston. I have reviewed and concur with the information entered by Evy Houston. This document represents the service I personally performed and the decisions made by , Codie Rodriguez ARNP. History of Present Illness Service Date and Time: 10/12/2022 1020 Initial [place] Sleepiness Scale score: 6 (09/02/22) Current [place] Sleepiness Scale score: 9 Additional HPI information: GARRISON JOHNSON returns via telehealth visit for follow up and results of the recently performed polysomnography. Her sleep study showed mild obstructive sleep apnea with an average AHI of 8.8 and miguel oxygen saturation of 77%. I explained the pathophysiology behind obstructive sleep apnea. We then spent quite a bit of time discussing different treatment options. For mild obstructive sleep apnea, surgery and oral appliance are alternatives to nasal CPAP therapy but in moderate or severe cases, nasal CPAP is the most effective and reliable treatment. I reviewed the impact of weight changes on sleep apnea and strongly recommended losing weight. Patient was cautioned about risks of drowsy driving until sleepiness symptoms resolve. Sleep Study - Results Type of Sleep Study: Polysomnography (COMPLETED 10/05/22) Prior sleep studies: No Polysomnography/Home Sleep Study results: IMPRESSION: The quality of the study is good. The patient had reduced sleep efficiency due to sleep onset insomnia. The sleep architecture was abnormal for sleep fragmentation and reduced amount of time spent in REM sleep. Respiratory monitoring showed mild obstructive sleep apnea-hypopnea (AHI = 8.8) associated with frequent arousals, oxyhemoglobin desaturation and moderate hypoxia (miguel oxygen saturation of 77%). The respiratory events occurred almost exclusively during supine REM sleep (supine AHI = 18.6; non-supine = 1.87). Snore was infrequent and light in intensity. There was no significant periodic leg movement of sleep. Cardiac rhythm was normal sinus rhythm without significant arrhythmia. No abnormal behavior (parasomnia) observed during the night. Allergies and Home Medications Known drug allergies: Yes (levothyroxine, Sulfa) Drug allergies reviewed: Yes Home medication list reviewed: Yes (no changes) Allergy and home medication list: Allergies levothyroxine sodium [From Levoxyl] Allergy (Verified 10/11/22 11:39) Rash Sulfa (Sulfonamide Antibiotics) Allergy (Verified 10/11/22 11:39) Rash Review of Systems Review of systems same as previous: Yes (no changes) Physical Exam Vital signs obtained and entered by: EVY Simpson MA Blood Pressure: 113/68 (per pt) Height: 5 ft 8 in Weight: 195 lb (per pt) Body Mass Index: 29.6 BMI Classification: Overweight Impression and Plan 1. Obstructive Sleep Apnea-Hypopnea Syndrome, mild, with lowest oxygen saturation of 77%. Obviously this is the cause of the patients symptoms of unrefreshed sleep, and excessive daytime sleepiness. Positive pressure therapy could benefit arrhythmia and diabetes. I reviewed most common therapy options of positional therapy, oral appliance and CPAP. She is currently sleeping in a recliner due to shoulder issues. She is not sure positional therapy would work. She would like to think about her options and call us back with her decision. Because the apnea is more severe supine, I instructed to avoid sleeping supine until able to start therapy. She voiced understanding and agreement. 2. Hypoxemia, moderate, with a miguel oxygen saturation of 77% and 14.2 minutes spent under 90%. Her baseline oxygen saturation was normal with an average oxygen saturation of 92%. * Patient to call with therapy choice * Attempt to lose weight. * Avoid supine sleep * The patient is again cautioned about driving until sleepiness completely resolves. * Return to be determined by choice of therapy. I will assess response to therapy and compliance at that time. Counseling Topics: Weight loss health impact Visit Type: Telehealth Phone Video Type: Jordana Patient Location: Home Location of Provider: Office Patient agrees and consents to this telehealth visit type: Yes Patient agrees to have their insurance billed: Yes Time Spent with Patient (minutes): 21 Provider Statement: I spent 100% of the Telehealth Phone Call with the patient with greater than 50% spent counseling the patient and coordination of care.
[2022-10-12 10:55] VITALS: BP 113/68
== END 2022-10-12 16:07 | disposition home or self-care (01) ==
LOC: SC 16:06
PROVIDERS: ATTEND Nurse Practitioner Family
DX: G47.33 Obstructive sleep apnea (adult) (pediatric) (principal); R09.02 Hypoxemia; E66.3 Overweight; Z68.29 Body mass index [BMI] 29.0-29.9, adult

== ENCOUNTER 2022-10-23 14:48 | Outpatient (CLI) | payer MEDICARE, OTHER ==
--- NOTE | 2022-10-24 09:24 | Mammography Report ---
BILATERAL DIGITAL SCREENING MAMMOGRAM 3D/2D: 10/23/2022 CLINICAL: Routine screening. Comparison is made to exams dated: 01/14/2020 mammogram, 07/08/2017 mammogram, 08/11/2014 mammogram, mammogram, and 04/24/2013 mammogram - [facility]. There are scattered areas of fibroglandular density in both breasts (category b / 25%-50% glandular t issue). No significant masses, calcifications, or other findings are seen in either breast. There has been no significant interval change. IMPRESSION: NEGATIVE There is no mammographic evidence of malignancy. A 1 year screening mammogram is recommended. Based on the Tyrer Cuzick model (a risk assessment model) the patients lifetime risk is 14.5% and he r 10 year risk is 7.4%. According to the ACR, ACS, and NCCN guidelines, an annual breast MRI exam al ng with mammogram is recommended if the patients lifetime risk is 20% or greater. This exam was interpreted at Station ID: [id number]. NOTE: For mammograms, a report in lay terms will be sent to the patient. Approximately 15% of breast malignancies will not be visualized mammographically. In the management of a palpable breast mass, a negative mammogram must not discourage biopsy of a clinically suspicious lesion. Electronically Signed By: Maikol aguirre/himanshu:10/24/2022 07:47:12 letter sent: No_Letter ACR BI-RADS Category 1: Negative 3341F PARENCHYMAL PATTERN: (A) - The breast(s) demonstrate(s) scattered fibroglandular densities. BI-RADS CATEGORY: (1) - 1 Mammogram [id number] 1 year screening LATERALITY: (B)
== END 2022-10-23 14:49 | disposition home or self-care (01) ==
LOC: DI 14:48
PROVIDERS: ATTEND Registered Nurse
DX: Z12.31 Encounter for screening mammogram for malignant neoplasm of breast (principal)

== ENCOUNTER 2023-02-18 10:38 | Outpatient (CLI) | payer MEDICARE, OTHER ==
[2023-02-18 14:59] LABS: THYROID STIMULATING HORMONE 11.13 uIU/mL (0.34-5.60)
== END 2023-02-18 10:39 | disposition home or self-care (01) ==
LOC: LAB.S 10:38
PROVIDERS: ATTEND Registered Nurse
DX: E03.9 Hypothyroidism, unspecified (principal)
CPT/HCPCS: 36415; 84436; 84443; 84480

== ENCOUNTER 2023-03-01 13:56 | Outpatient (CLI) | payer MEDICARE, OTHER ==
--- NOTE | 2023-03-03 08:46 | Ultrasound Report ---
PROCEDURE: Head or Neck Soft Tissue INDICATIONS: HYPOTHYROIDISM TECHNIQUE: Real-time scanning was performed of the thyroid gland, with image documentation. COMPARISON: None FINDINGS: Right: Thyroid lobe measures 1.6 x 1.2 x 0.7 cm, and is heterogeneous in echotexture. Left: Thyroid lobe measures 2.6 x 1 1 x 1.0 cm, and is heterogeneous in echotexture. Isthmus: 3 mm thick. No discrete thyroid nodules. IMPRESSION: Small thyroid gland with heterogeneous echotexture. No thyroid nodules. ACR TI-RADS definitions and recommendations: TI-RADS 1 (benign): 0 points. FNA not needed. TI-RADS 2 (not suspicious): 2 points. FNA not needed. TI-RADS 3 (mildly suspicious): 3 points. "FNA if 2.5 cm or larger, follow up if 1.5 cm or larger (at 1, 3, and 5 years). TI-RADS 4 (moderately suspicious): 4-6 points. "FNA if 1.5 cm or larger, follow up if 1 cm or larger (at 1, 2, 3, and 5 years). TI-RADS 5 (highly suspicious): 7 points or more. "FNA if 1 cm or larger, follow up if 0.5 cm or larger (every year for 5 years). Reviewed by: Rosanne Pollack MD on 03/03/2023 8:44 AM PST Approved by: Rosanne Pollack MD on 03/03/2023 8:44 AM PST Station ID: [id number]
== END 2023-03-01 13:57 | disposition home or self-care (01) ==
LOC: DI 13:56
PROVIDERS: ATTEND Registered Nurse
DX: E03.9 Hypothyroidism, unspecified (principal); Z86.39 Personal history of other endocrine, nutritional and metabolic disease

== ENCOUNTER 2023-10-30 07:21 | Outpatient (CLI) | payer MEDICARE, OTHER ==
[2023-10-30 15:18] LABS: ESTIMATED AVERAGE GLUCOSE 123 mg/dL (70-100); HEMOGLOBIN A1c% 5.9 % (4.27-6.07)
[2023-10-30 15:41] LABS: ALBUMIN 4.7 g/dL (3.2-5.5); ALBUMIN/GLOBULIN RATIO 1.9 (1.0-2.2); BILIRUBIN,TOTAL 0.4 mg/dL (0.2-1.0); CALCIUM 9.9 mg/dL (8.5-10.3); CREATININE 0.6 mg/dL (0.6-1.3); POTASSIUM 4.2 mmol/L (3.5-4.5); TOTAL PROTEIN 7.2 g/dL (6.4-8.9)
[2023-10-30 15:42] LABS: MICROALBUM/CREATININE RATIO,UR 9.8 ug/mg (<30.0); MICROALBUMIN,URINE 1.2 mg/dL
== END 2023-10-30 07:22 | disposition home or self-care (01) ==
LOC: LAB.S 07:21
PROVIDERS: ATTEND Registered Nurse
DX: E11.9 Type 2 diabetes mellitus without complications (principal); Z13.228 Encounter for screening for other metabolic disorders
CPT/HCPCS: 36415; 80053; 82043; 82570; 83036